=== PATIENT | female | born 1975 | race Caucasian/White ===

== ENCOUNTER 2024-07-16 17:11 | Emergency (ER) | payer BC, SELFPAY ==
--- NOTE | ~2024-07-16 | XR_ITS ---
EXAMINATION: XR HAND, LEFT CLINICAL INFORMATION: Left thumb pain COMPARISON: None available. TECHNIQUE: PA, lateral, and oblique views of the left hand. FINDINGS: The bones and soft tissues are normal. No fracture. Alignment is anatomic. Joint spaces are maintained. No erosions or soft tissue calcifications. Post surgical changes at the base of the middle phalanx of the first digit. XR/XR hand LT min 3V IMPRESSION: Postsurgical changes at the base of the middle phalanx of the first digit. Electronically signed by: Monika Wilkerson MD 07/16/2024 06:27 PM EST RP
[2024-07-16 17:31] VITALS: BP 145/87; PULSE 83; RESP 16; TEMP 35.9; O2SAT 97; BMI 52.7
[2024-07-16] MEDS: Diphth,Pertus(ACell),Tet Adult 0.5 ML SYRINGE IM (18:04)
--- NOTE | 2024-07-16 18:08 | ED_ITS ---
HPI - General Adult General Chief complaint: Skin/Abscess/Foreign Body Stated complaint: LT thumb injury Time Seen by Provider: 07/16/24 17:54 Source: patient Mode of arrival: ambulatory Limitations: no limitations History of Present Illness ED Provider: MARIAN iXong HPI narrative: 49-year-old female presents with complaints of staple to left thumb, reports she accidentally stapled her thumb with a heavy duty stapler. Denies numbness and tingling. Not on blood thinners. Able to move her thumb without difficulty. Not up-to-date on tetanus shot. Related Data Previous Rx's ?Medication ?Instructions ?Recorded doxycycline hyclate 100 mg capsule 100 mg PO BID 7 days #14 caps 07/16/24 Allergies Allergy/AdvReac Type Severity Reaction Status Date / Time amoxicillin Allergy Hives Verified 07/16/24 17:32 Penicillins [PCN] Allergy Shortness Verified 07/16/24 17:32 of Breath Review of Systems Review of Systems: Yes all other systems are reviewed and are negative PMFSH Past Medical History Attestation statement: The following information was validated with the patient. Source: old records reviewed and nursing notes reviewed Social History Social History Advance Directives: No Advance Directives Information Provided: No Physical Exam ED Vital Signs: Vital Signs - 24 hr 07/16/24 17:31 Temperature 96.7 F L Pulse Rate 83 Respiratory Rate 16 Blood Pressure 145/87 H Pulse Oximetry 97 Oxygen Delivery Method Room Air BMI result Body Mass Index 52.7 vss Appearance: Alert.? Oriented X3.? No acute cardiopulmonary distress distress.? Head: Normocephalic, atraumatic, no step-offs or deformities CVS: Pulses normal.? Respiratory: No respiratory distress.? Abdomen: Soft and nontender.? Skin: ? Normal skin color. Extremities: 5/5 strength to bilateral upper and lower extremities + left thumb with through and thrugh staple in place. Normal distal sensation b/l. Back: No midline tenderness, no C-spine tenderness, full range of motion, No CVA tenderness bilaterally Neuro: Oriented X 3.? No motor deficit.? No sensory deficit. Course Reevaluation(s) Reevaluation #1: X-ray still pending however will have her discharged home. Will call her if something is abnormal. Will discharge on doxycycline as she has an amoxicillin allergy. Educated patient on diagnosis and treatment plan, answered all question, patient verbalizes understanding. At this time patient will be discharged home, advised to return with new or worsening symptoms. Educated on worrisome signs and symptoms and when to return. At this time I feel comfortable discharge home. Time: 18:10 Medications Administered Discontinued Medications Generic Name Dose Route Start Last Admin Trade Name Freq PRN Reason Stop Dose Admin Diphtheria/Tetanus/Acell Pertussis 0.5 ml 07/16/24 17:37 07/16/24 18:04 Diphth,Pertus(Acell),Tet Adult 0.5 Ml Syringe IM 07/16/24 17:38 0.5 ml .ONCE ONE Administration Medical Decision Making Medical Decision Making MDM Narrative: 49-year-old female presents with staple to left distal thumb accidental. Last tetanus greater than 5 years ago. On exam patient has a staple through and through to the left thumb. History and physical exam concerning for foreign body and distal left thumb, unlikely fracture, dislocation. Plan removal of staple done in triage without difficulty using alligator forceps. Will give tetanus shot Differential Diagnosis Differential Diagnoses: The differential diagnosis associated with the presentation includes (History and physical exam concerning for foreign body and distal left thumb, unlikely fracture, dislocation.) Admission/Observation Consideration of admission/observation: Escalation of care including admission/observation considered Independent Interpretation I performed an independent interpretation of an: Plain X-Ray Radiology Impression Discussion of test interpretation with radiology: I have reviewed the radiologist's reading. Discharge Plan Discharge Clinical Impression: Foreign body (FB) in soft tissue Patient Disposition: Home, Self-Care Instructions: Soft Tissue Foreign Body (ED) Additional Instructions: Take your medications as prescribed. If you were prescribed antibiotics today, it is important that you take your medication to their entirety, do not skip any doses, do not finish them early. Follow-up with your primary care provider this week. Return to the emergency department with new or worsening symptoms. Such as fevers, chills, chest pain, shortness of breath, nausea, vomiting, dizziness, headache, vision changes, lethargy In case of emergency call 911 Prescriptions: New doxycycline hyclate 100 mg capsule 100 mg PO BID 7 Days Qty: 14 0RF Referrals: Physician,None [Primary Care Provider] - 2 days Stand Alone Forms: Work/School Release Print Language: Tunisian
[2024-07-16 18:13] VITALS: BP 145/87; PULSE 83; RESP 16; TEMP 35.9; O2SAT 97
== END 2024-07-16 18:13 | disposition home or self-care (01) ==
PROVIDERS: Emergency Provider Emergency Medicine
DX: S61.042A Puncture wound with foreign body of left thumb without damage to nail, initial encounter (principal); W45.8XXA Other foreign body or object entering through skin, initial encounter; M79.645 Pain in left finger(s); Y93.89 Activity, other specified; Y92.9 Unspecified place or not applicable; Y99.9 Unspecified external cause status; Z23 Encounter for immunization
CPT/HCPCS: 73130; 90471; 90715; 99282; 99284